=== PATIENT | male | born 1940 | race Caucasian/White ===

== ENCOUNTER 2016-06-01 08:35 | Day surgery (SDC) | payer MEDICARE, BC ==
[~2016-06-01] VITALS: Ht 175.3 cm; Wt 76.8 kg
[~2016-06-01 08:35] MED LIST: ADVAIR 250/28 DISKUS IH; ALBUTEROL SULFAT3 M3 IH; ASPIR-LOW81 MG PO; COMBIVENT INH14.7 GM IH; DUONEB 3 MG/3 ML3 ML IH; FERROUS SULFAT325 MG PO; FERROUS SULFATE65 MG PO; FOLIC ACID 40400 MCG PO; GLUCOPHAGE500 MG/TAB PO; METHOTREXA2.5 MG/TAB PO; PRINIVIL40 MG PO; PROAIR HFA0.09 MG/AC IH; RT ADVAIR 528 DISKUS IH; RT SPIRIVA18 MCG IH; VITAMIN C500 MG PO
[2016-06-01 09:54] VITALS: BP 136/64; PULSE 88; TEMP 97.3
[2016-06-01] MEDS ORDERED: MUCINEX 60600 MG/TA1 PO (10:06)
[2016-06-01] MEDS ORDERED: LEVAQUIN 750MG750 M1 PO (10:06)
[2016-06-01] MEDS ORDERED: MAGNESIUM CITR100 MG PO (10:07)
[2016-06-01] MEDS ORDERED: METHOTREXA2.5 MG/TAB PO (10:10)
[2016-06-01] MEDS ORDERED: RT SPIRIVA18 MCG IH (10:10)
[2016-06-01] MEDS ORDERED: THEO-24 20200 MG/CAP PO (10:11)
[2016-06-01 11:20] VITALS: BP 116/59; PULSE 98
[2016-06-01 11:34] VITALS: BP 115/67; PULSE 101
[2016-06-01 11:50] VITALS: BP 134/83; PULSE 95
[2016-06-01 12:00] VITALS: BP 134/63; PULSE 103
[2016-06-01 13:02] VITALS: BP 128/51; PULSE 93
== END 2016-06-01 12:30 | disposition home or self-care (01) ==
LOC: SDCO 08:35
DX: R06.02 Shortness of breath (principal); R05 Cough; R09.89 Other specified symptoms and signs involving the circulatory and respiratory systems; M06.9 Rheumatoid arthritis, unspecified; E10.9 Type 1 diabetes mellitus without complications; J44.9 Chronic obstructive pulmonary disease, unspecified; I27.2 Other secondary pulmonary hypertension; A31.0 Pulmonary mycobacterial infection; Z87.891 Personal history of nicotine dependence; Z79.899 Other long term (current) drug therapy; Z79.84 Long term (current) use of oral hypoglycemic drugs
CPT/HCPCS: J2704; J7030